=== PATIENT | female | born 1970 | race Two or more races ===

== ENCOUNTER 2023-04-06 04:03 | Inpatient (IN) | payer OTHER ==
[2023-04-04 09:41] VITALS: BMI 37.5
[~2023-04-06 04:03] MED LIST: BUPIVACAINE HCL/PF 0.5% (5MG/ML) 10 ML VIAL IJ ONE; BUPIVACAINE LIPOSOME/PF (EXPAREL) 266 MG/20 ML VIAL NR ONE; GENTAMICIN SO4 80 MG/2 ML VIAL IVPB ONE; HYDROGEN PEROXIDE 473 ML PO ONE; LIDOCAINE 1%/EPI 1:100000 (20 ML MULTI DOSE VIAL) IJ ONE; THROMBIN (BOVINE) 5,000 UNIT VIAL TP ONE; VANCOMYCIN 1 GM in D5W (PRE-DOCKED) 1,000 MG/250 ML (RESTRICTED TO ID ONLY IVPB ONE; ceFAZolin SODIUM 1 GM VIAL IVPB ONE
[2023-04-06] MEDS ORDERED: THROMBIN (BOVINE) 5,000 UNIT VIAL TP ONE ×3 (07:02→09:45)
[2023-04-06] MEDS ORDERED: VANCOMYCIN 1,000 MG VIAL (RESTRICTED TO ID ONLY) ONE ×2 (07:02→08:44)
[2023-04-06] MEDS ORDERED: BUPIVACAINE HCL/PF 0.5% (5MG/ML) 10 ML VIAL ONE (07:02)
[2023-04-06] MEDS ORDERED: GENTAMICIN SO4 80 MG/2 ML VIAL ONE (07:02)
[2023-04-06] MEDS ORDERED: BUPIVACAINE LIPOSOME/PF (EXPAREL) 266 MG/20 ML VIAL ONE (07:02)
[2023-04-06 07:54] LABS: EPI CELLS >36 /uL (0-25.1); HYALINE CASTS 12 /uL (0-3.1); PH,URINE 5.5 (5.0-8.0); URINE APPEARANCE CLEAR; URINE BACTERIA 6158 /uL (0-1359); URINE BILIRUBIN NEGATIVE (NEGATIVE); URINE COLOR YELLOW; URINE GLUCOSE (UA) NEGATIVE (NEGATIVE); URINE KETONE NEGATIVE (NEGATIVE); URINE LEUK ESTERASE 1+ (NEGATIVE); URINE NITRITE NEGATIVE (NEGATIVE); URINE PROTEIN NEGATIVE (NEGATIVE); URINE UROBILINOGEN 0.2 mg/dL (0.2-1.0); URINE WBC 301 /uL (0-25.8)
[2023-04-06] MEDS ORDERED: MIDAZOLAM HCL 2 MG/2 ML SINGLE DOSE VIAL ONE ×2 (07:54→08:07)
[2023-04-06] MEDS ORDERED: PROPOFOL 20 ML ONE (08:07)
[2023-04-06] MEDS ORDERED: SUCCINYLCHOLINE CHLORIDE 200 MG/10 ML SYRINGE ONE (08:07)
[2023-04-06] MEDS ORDERED: LIDOCAINE HCL/PF 2% SDV 5ML VIAL ONE (08:28)
[2023-04-06] MEDS ORDERED: ceFAZolin SODIUM 1 GM VIAL ONE ×2 (08:36→17:38)
[2023-04-06] MEDS ORDERED: ROCURONIUM BROMIDE 50 MG/5 ML SYRINGE ONE ×2 (08:36→09:07)
[2023-04-06] MEDS ORDERED: TRANEXAMIC ACID 1000 MG/10 ML VIAL ONE (08:47)
[2023-04-06] MEDS ORDERED: LIDOCAINE 1%/EPI 1:100000 (20 ML MULTI DOSE VIAL) IJ ONE (08:49)
[2023-04-06] MEDS ORDERED: ceFAZolin SODIUM 1 GM VIAL IVPB ONE (08:53)
[2023-04-06] MEDS ORDERED: VANCOMYCIN 1 GM in D5W (PRE-DOCKED) 1,000 MG/250 ML (RESTRICTED TO ID ONLY IVPB ONE ×3 (08:53→10:30)
[2023-04-06] MEDS ORDERED: GENTAMICIN SO4 80 MG/2 ML VIAL IVPB ONE ×2 (09:15→10:12)
[2023-04-06 09:39] LABS: URINE RBC 46 /uL (0-23.9)
[2023-04-06] MEDS ORDERED: HYDROGEN PEROXIDE 473 ML PO ONE (10:12)
[2023-04-06] MEDS ORDERED: SEVOFLURANE 250 ML BTL ONE (10:20)
[2023-04-06] MEDS ORDERED: DEXAMETHASONE SOD PHOSPHATE 4 MG/1 ML VIAL ONE ×2 (10:39)
[2023-04-06] MEDS ORDERED: ONDANSETRON 4 MG/2 ML VIAL ONE ×3 (10:39→15:22)
[2023-04-06] MEDS ORDERED: NEOSTIGMINE METHYLSULFATE 0.5 MG/1 ML - 10 ML MDV ONE (10:40)
[2023-04-06] MEDS ORDERED: BUPIVACAINE LIPOSOME/PF (EXPAREL) 266 MG/20 ML VIAL NR ONE (10:40)
[2023-04-06] MEDS ORDERED: BUPIVACAINE HCL/PF 0.5% (5MG/ML) 10 ML VIAL IJ ONE (10:40)
[2023-04-06] MEDS ORDERED: GLYCOPYRROLATE 0.2 MG/1 ML VIAL ONE ×2 (10:44→11:04)
[2023-04-06] MEDS ORDERED: SUGAMMADEX SODIUM 200 MG/2 ML VIAL ONE (11:18)
[2023-04-06] MEDS ORDERED: NALOXONE HCL 0.4 MG/ML VIAL ONE (11:19)
[2023-04-06] MEDS ORDERED: ONDANSETRON 4 MG/2 ML VIAL IVPUSH PRN ×2 (11:26→11:36)
[2023-04-06] MEDS ORDERED: diphenhydrAMINE HCL 25 MG CAPSULE (FP) PO PRN (11:26)
[2023-04-06] MEDS ORDERED: oxyCODONE HCL 5 MG TABLET PO PRN (11:26)
[2023-04-06] MEDS ORDERED: morphine SULFATE 4 MG/ML VIAL IVPUSH PRN (11:26)
[2023-04-06] MEDS ORDERED: LACTATED RINGERS SOLUTION 1,000 ML/1,000 ML INFUS.BAG IV SCH (11:30)
[2023-04-06] MEDS: DOCUSATE SODIUM 100 MG CAPSULE (FP) PO SCH ×2 (14:00→21:31)
[2023-04-06] MEDS: CEFAZOLIN 1 GM in DEXTROSE 5%-WATER - 50 ML IVPB SCH (17:54)
[2023-04-06] MEDS: ATORVASTATIN CA 20 MG TABLET (FP) PO SCH (21:31)
[2023-04-06] MEDS: HEPARIN NA (PORCINE) 5,000 UNITS/ML 1ML VIAL SQ SCH (21:31)
[2023-04-06] MEDS: LACTATED RINGERS SOLUTION 1,000 ML IV SCH (21:32)
[2023-04-07] MEDS: CEFAZOLIN 1 GM in DEXTROSE 5%-WATER - 50 ML IVPB SCH ×3 (01:53→17:49)
[2023-04-07] MEDS: DOCUSATE SODIUM 100 MG CAPSULE (FP) PO SCH ×3 (06:08→21:56)
[2023-04-07] MEDS: HEPARIN NA (PORCINE) 5,000 UNITS/ML 1ML VIAL SQ SCH ×4 (06:08→22:01)
[2023-04-07 07:28] LABS: HEMATOCRIT 41.1 % (32.4-45.2); HEMOGLOBIN 14.1 GM/dL (10.7-15.3); MCHC 34.2 g/dl (32.0-36.0); MEAN CELL VOLUME 90.7 fl (80-96); MEAN PLT VOLUME 8.6 fl (7.5-11.1); PLATELET COUNT 211 10^3/uL (134-434); RBC 4.53 M/mm3 (3.60-5.2); RDW 12.8 % (11.6-15.6); WHITE BLOOD COUNT 11.8 K/mm3 (4.0-10.0)
[2023-04-07 07:45] LABS: POTASSIUM 4.5 mmol/L (3.5-5.1)
[2023-04-07 07:47] LABS: CALCIUM 9.4 mg/dL (8.5-10.1)
[2023-04-07 07:48] LABS: BLOOD UREA NITROGEN 10.4 mg/dL (7-18)
[2023-04-07 07:51] LABS: CREATININE 0.9 mg/dL (0.55-1.3)
[2023-04-07] MEDS: PANTOPRAZOLE 20 MG TABLET PO SCH (10:39)
[2023-04-07] MEDS: OMEGA-3 ACID ETHYL ESTERS (FATTY-ACIDS) 1 GM CAPSULE (FP) PO SCH (10:39)
[2023-04-07] MEDS: FOLIC ACID 1 MG TABLET (FP) PO SCH (10:40)
[2023-04-07] MEDS: LISINOPRIL 5 MG TABLET PO SCH (10:40)
[2023-04-07] MEDS: LACTATED RINGERS SOLUTION 1,000 ML IV SCH (13:03)
[2023-04-07] MEDS: ACETAMINOPHEN 325 MG TABLET (FP) PO PRN (14:22)
[2023-04-07] MEDS: ATORVASTATIN CA 20 MG TABLET (FP) PO SCH (21:56)
[2023-04-07] MEDS: oxyCODONE HCL 5 MG TABLET PO PRN (22:07)
[2023-04-08] MEDS: CEFAZOLIN 1 GM in DEXTROSE 5%-WATER - 50 ML IVPB SCH ×3 (01:34→17:36)
[2023-04-08] MEDS: ACETAMINOPHEN 325 MG TABLET (FP) PO PRN (04:42)
[2023-04-08] MEDS ORDERED: ACETAMINOPHEN 325 MG TABLET (FP) PO PRN (04:47)
[2023-04-08] MEDS: DOCUSATE SODIUM 100 MG CAPSULE (FP) PO SCH ×2 (06:19→13:45)
[2023-04-08] MEDS: HEPARIN NA (PORCINE) 5,000 UNITS/ML 1ML VIAL SQ SCH ×2 (06:26→15:36)
[2023-04-08 08:26] LABS: HEMATOCRIT 39.8 % (32.4-45.2); HEMOGLOBIN 13.6 GM/dL (10.7-15.3); MCH 31.2 pg (25.7-33.7); MCHC 34.1 g/dl (32.0-36.0); MEAN CELL VOLUME 91.4 fl (80-96); MEAN PLT VOLUME 8.5 fl (7.5-11.1); PLATELET COUNT 171 10^3/uL (134-434); RBC 4.35 M/mm3 (3.60-5.2); RDW 13.2 % (11.6-15.6); WHITE BLOOD COUNT 9.6 K/mm3 (4.0-10.0)
[2023-04-08 08:47] LABS: BLOOD UREA NITROGEN 10.8 mg/dL (7-18)
[2023-04-08 08:49] LABS: CALCIUM 8.6 mg/dL (8.5-10.1); CREATININE 0.8 mg/dL (0.55-1.3)
[2023-04-08] MEDS: LISINOPRIL 5 MG TABLET PO SCH (09:31)
[2023-04-08] MEDS: PANTOPRAZOLE 20 MG TABLET PO SCH (09:31)
[2023-04-08] MEDS: OMEGA-3 ACID ETHYL ESTERS (FATTY-ACIDS) 1 GM CAPSULE (FP) PO SCH (09:31)
[2023-04-08] MEDS: FOLIC ACID 1 MG TABLET (FP) PO SCH (09:31)
[2023-04-08] MEDS: oxyCODONE HCL 5 MG TABLET PO PRN (13:41)
[2023-04-08 19:45] VITALS: BP 103/56; PULSE 97; RESP 18; TEMP 98.4
== END 2023-04-08 21:00 | disposition home or self-care (01) | DRG 304 ==
LOC: J2C 04:03 → J4W 18:19
PROVIDERS: ADMIT Family Medicine; ATTEND Neurological Surgery
PROC: 0SG3071 Fusion of Lumbosacral Joint with Autologous Tissue Substitute, Posterior Approach, Posterior Column, Open Approach (ICD-10-PCS; 2023-04-06)
PROC: 0SB40ZZ Excision of Lumbosacral Disc, Open Approach (ICD-10-PCS; 2023-04-06)
PROC: 4A1104G Monitoring of Peripheral Nervous Electrical Activity, Intraoperative, Open Approach (ICD-10-PCS; 2023-04-06)
PROC: 0SG30AJ Fusion of Lumbosacral Joint with Interbody Fusion Device, Posterior Approach, Anterior Column, Open Approach (ICD-10-PCS; principal; 2023-04-06 08:00)
DX: M43.17 Spondylolisthesis, lumbosacral region (principal); M47.817 Spondylosis without myelopathy or radiculopathy, lumbosacral region; E66.9 Obesity, unspecified; Z68.37 Body mass index [BMI] 37.0-37.9, adult; M51.27 Other intervertebral disc displacement, lumbosacral region
CPT/HCPCS: 36415; 72131-TC; 76000-TC-FY; 80048; 81003; 81025; 85027; 94760; 97116-GP; C1713; C1889; J1644